=== PATIENT | female | born 1990 ===

== ENCOUNTER 2020-09-26 08:07 | Emergency (ER) | payer OTHER ==
[~2020-09-26] VITALS: Ht 172.7 cm; Wt 127.0 kg
== END 2020-09-26 14:48 | disposition home or self-care (01) ==
LOC: ER 08:07
DX: O46.8X1 Other antepartum hemorrhage, first trimester (principal); O36.80X0 Pregnancy with inconclusive fetal viability, not applicable or unspecified; O26.851 Spotting complicating pregnancy, first trimester; Z3A.01 Less than 8 weeks gestation of pregnancy